=== PATIENT | female | born 1955 | race Caucasian/White ===

== ENCOUNTER 2022-11-25 19:56 | Emergency (ER) | payer MEDICARE ==
[~2022-11-25] VITALS: Ht 243.8 cm; Wt 84.0 kg
[2022-11-25 21:52] VITALS: BP 150/89
== END 2022-11-25 21:54 | disposition home or self-care (01) ==
LOC: ED 19:56
DX: S70.12XA Contusion of left thigh, initial encounter (principal); I10 Essential (primary) hypertension; E78.5 Hyperlipidemia, unspecified; V18.0XXA Pedal cycle driver injured in noncollision transport accident in nontraffic accident, initial encounter; Y93.55 Activity, bike riding; Y92.410 Unspecified street and highway as the place of occurrence of the external cause; Z86.718 Personal history of other venous thrombosis and embolism